=== PATIENT | female | born 1950 | race Caucasian/White ===

== ENCOUNTER 2021-05-07 14:18 | Emergency (ER) | payer MEDICARE, OTHER ==
[2021-05-07 14:39] VITALS: BP 148/101
--- NOTE | 2021-05-07 14:52 | ED Physician Documentation ---
History of Present Illness - Stated complaint Stated Complaint: LT LEG PX - Chief complaint Chief Complaint: Ext Problem - Additonal information Additional information: 70-year-old female presents the emergency department for evaluation of acute left lower extremity swelling pain and erythema. She arrived here on [facility] yesterday after a 2-day drive from [facility] in which she spent 15 hours the first day in the car stopping just a few times to give her dogs a break. She has a history of psoriatic arthritis for which she was recently started on Enbrel. No personal history of blood clots or cancer though she endorses a family history and her father. She is not anticoagulated. denies any chest pain or SOA PMH: Hypertension, psoriatic arthritis, hypothyroid Meds: Daily aspirin 81 mg, Lexapro, levothyroxine, hydrochlorothiazide, atorvastatin, Enbrel Review of Systems Constitutional: denies: Fever, Chills Eyes: reports: Reviewed and negative Ears: reports: Reviewed and negative Nose: reports: Reviewed and negative Cardiac: reports: Reviewed and negative Respiratory: reports: Reviewed and negative GI: reports: Reviewed and negative : denies: Dysuria, Frequency Skin: reports: Other (psoriasis patch left lwor lateral ankle). denies: Rash, Lesions Musculoskeletal: reports: Other (left lowr leg swelling, erythema) Neurologic: reports: Reviewed and negative PD PAST MEDICAL HISTORY - Present Medications Home Medications: Ambulatory Orders Medication Instructions Recorded Confirmed cephALEXin [Keflex] 500 mg PO Q6H #28 05/07/21 - Allergies Allergies/Adverse Reactions: Allergies Allergy/AdvReac Type Severity Reaction Status Date / Time midazolam Allergy Hallucinati Verified 05/07/21 14:40 ons Penicillins AdvReac Itching Verified 05/07/21 14:39 PD ED PE EXPANDED - General General: Alert, No acute distress, Other (obese) - Cardiac Cardiac: Regular Rate, Radial strong equal, Pedal strong equal, Cap refill < 2 sec. No: Murmur Present - Respiratory Respiratory: Clear to ausultation jenn. No: Distress, Labored - Abdomen Abdomen: Normal Bowel sounds. No: Tender to palpation - Derm Derm: Normal color, Warm and dry, Other (Large scaling psoriatic patch left lateral ankle. Mild erythema without induration of the left foot ankle and proximal lower anterior tibia) - Extremities Extremities: Normal, Deformity, Pedal edema L, Left calf TTP/cord, Pedal Pulses Present Results - Vitals Vitals: Vital Signs - 24 hr 05/07/21 14:34 Temperature 36.7 C Heart Rate 84 Respiratory 16 Rate Blood Pressure 148/101 H O2 Saturation 96 Oxygen O2 Source Room air - Rads (name of study) Left leg US DVT Radiology: See rad report, Other (Per technologist To the limitations of the study no DVT is seen) PD MEDICAL DECISION MAKING - ED course Complexity details: reviewed results, re-evaluated patient, d/w patient ED course: 70-year-old female presents to the emergency department for evaluation of acute left lower leg swelling and erythema in the setting of a very extensive car ride from [place] to [facility]. No previous history of blood clots. She is on Enbrel for a history of psoriatic arthritis. She denies chest pain or shortness of air. There have been no fevers. Ultrasound of the left lower extremity was somewhat limited secondary to edema but no obvious DVT was seen. Given the induration and erythema surrounding the psoriatic plaque I suspect that she may also have underlying mild cellulitis. Will be started on Keflex. Will recommend elevation of the leg at night. If symptoms markedly worsen she develops chest pain or shortness of air she is to return to the ER for a second evaluation. Impression: Left lower leg swelling Left foot cellulitis Departure - Departure Disposition: 01 Home, Self Care Condition: Stable Record reviewed to determine appropriate education?: Yes Prescriptions: cephALEXin [Keflex] 500 mg PO Q6H #28 Comments: Sarah forbes were seen in the ER today for left lower extremity swelling erythema and pain. Is followed a lengthy car drive from [place]. The ultrasound that was completed, it was somewhat limited due to this edema, however we did not see any obvious deep vein thrombosis. I do suspect that he may have a mild cellulitis in that foot secondary to the psoriasis patch. Please fill the prescription for the cephalexin and take 4 times daily as directed. You would benefit from elevating your leg is much as you can especially at night when asleep. At any point you feel that your symptoms are worsening, you develop worsening pain, have chest pain or shortness of air please return immediately to the ER for a second look.
--- NOTE | 2021-05-07 16:01 | Ultrasound Report ---
PROCEDURE: Duplex Ext Veins Left INDICATIONS: pain swelling. Clinical concern for deep venous thrombosis. TECHNIQUE: Real-time imaging, as well as color and pulse Doppler interrogation, were performed of the lower extr emity deep veins from the inguinal ligament to the popliteal fossa. COMPARISON: None. FINDINGS: The deep veins are normally compressible, and free of intraluminal thrombus. Color and pu lse Doppler demonstrate normal phasic intraluminal flow. There is normal augmentation response to di stal compression maneuver. There is limited visualization of the peroneal veins. Soft tissue edema is noted. IMPRESSION: Limited study demonstrating no findings of deep venous thrombosis. Note: Concordant preliminary findings given by the sheet rock installation helper upon the completion of the examination to Shawanda Leo at 3:45 PM on 05/07/2021. Reviewed by: Galen Greene MD on 05/07/2021 3:00 PM RENATA Approved by: Galen Greene MD on 05/07/2021 3:00 PM RENATA Station ID: [id number]
== END 2021-05-07 16:19 | disposition home or self-care (01) ==
LOC: ED 14:18
DX: L03.116 Cellulitis of left lower limb (principal); I10 Essential (primary) hypertension; L40.50 Arthropathic psoriasis, unspecified
CPT/HCPCS: 99284